=== PATIENT | male | born 1970 | race American Indian/Alaskan Native ===

== ENCOUNTER 2017-09-22 11:58 | Emergency (ER) | payer OTHER, BC ==
[2017-09-22 12:10] VITALS: BP 174/99
[2017-09-22] MEDS ORDERED: FLEXERIL PO ONE (12:40)
[2017-09-22] MEDS ORDERED: MOTRIN PO ONE (12:40)
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
--- NOTE | 2017-09-22 14:22 | XRay Report ---
LEFT HUMERUS: Pain AP and lateral views of the humerus demonstrate normal mineralization and contours for this patient's age. No destructive changes are noted and the adjacent soft tissues are normal. IMPRESSION: Normal left humerus. LEFT SHOULDER: Pain Routine views demonstrate normal bony and soft tissue structures with normal joint alignment of the shoulder. IMPRESSION: Normal study. Cervical spine: Neck pain. AP and lateral views demonstrates large bridging anterior and posterior spurs at C5-6 with significant narrowing of the interspace. The remaining vertebral bodies are well aligned with good interspaces. The vertebral height is generally maintained at all levels. The posterior joints appear generally unremarkable. No prevertebral swelling identified. Impressions: Significant C5-6 degenerative changes.
== END 2017-09-22 14:34 | disposition home or self-care (01) ==
LOC: ED 11:58
DX: S46.912A Strain of unspecified muscle, fascia and tendon at shoulder and upper arm level, left arm, initial encounter (principal); S13.4XXA Sprain of ligaments of cervical spine, initial encounter; I10 Essential (primary) hypertension; V89.2XXA Person injured in unspecified motor-vehicle accident, traffic, initial encounter; Y93.89 Activity, other specified; Y92.89 Other specified places as the place of occurrence of the external cause; Y99.8 Other external cause status
CPT/HCPCS: 72040; 99283